=== PATIENT | male | born 1955 | race Caucasian/White ===

== ENCOUNTER 2017-09-15 14:25 | Emergency (ER) | payer OTHER ==
[~2017-09-15] VITALS: Ht 182.9 cm; Wt 100.0 kg
[~2017-09-15 14:25] MED LIST: CITA40 PO; LEVO.1 PO; THERM PO
[2017-09-15 14:27] VITALS: BP 142/79; PULSE 103; RESP 16; TEMP 97.7; O2SAT 98
[2017-09-15] MEDS ORDERED: KETOROLAC TROMETHAMINE 60 MG/2 ML (IM) VIAL IM ONE (14:45)
[2017-09-15 15:34] LABS: AUTOMATED NEUTROPHIL # 5.6 TH/MM3 (1.8-7.7); BASOPHIL % 0.4 % (0.0-2.0); EOSINOPHIL # 0.2 TH/MM3 (0-0.4); HEMATOCRIT 43.2 % (39.0-51.0); HEMO FLAGS DIFF FINAL; LYMPHOCYTE # 1.6 TH/MM3 (1.0-4.8); MEAN CELL VOLUME 89.5 FL (80.0-100.0); MEAN CORPUSCULAR HEMOGLOBIN 30.9 PG (27.0-34.0); MEAN CORPUSCULAR HGB CONC 34.5 % (32.0-36.0); MONO % 8.5 % (0.0-8.0); NEUT % 69.1 % (16.0-70.0); PLATELET COUNT 148 TH/MM3 (150-450); RED BLOOD COUNT 4.83 MIL/MM3 (4.50-5.90); RED CELL DISTRIBUTION WIDTH 13.5 % (11.6-17.2); WHITE BLOOD COUNT 8.1 TH/MM3 (4.0-11.0)
--- NOTE | 2017-09-15 15:37 | RADRPT ---
EXAM DATE/TIME: 09/15/2017 14:58 [place] COMPARISON: No previous studies available for comparison. INDICATIONS : Left knee pain post fall. MEDICAL HISTORY : None. SURGICAL HISTORY : None. ENCOUNTER: Initial ACUITY: 1 day PAIN SCORE: 8/10 LOCATION: Left lateral knee. FINDINGS: Four view examination of the left knee demonstrates no evidence of fracture or dislocation. There is moderate diffuse degenerative arthritis right knee joint. There is narrowing of the medial and latera l joint compartments. No significant joint effusion is seen. The patella grossly intact.. CONCLUSION: No acute fracture or joint dislocation. Moderate primary degenerative arthritis. Gerald Avelar MD on September 15, 2017 at 15:34 Board Certified Radiologist. This report was verified electronically.
--- NOTE | 2017-09-15 15:44 | PD ---
HPI Chief Complaint: Depression Time Seen by Provider: 14:39 Travel History International Travel<30 days: No Contact w/Intl Traveler<30days: No Traveled to known affect area: No History of Present Illness HPI 62-year-old male presents to emergency Department with points of depression and suicidal ideation as well as recent relapse and using crack cocaine. Patient also is complaining of left knee pain after fall 2 days ago. He denies fever, chills, or other symptoms. History of arthritis in the knee with arthroscopic surgery in the past. He states he last used crack cocaine yesterday. He is requesting psychiatric evaluation for his depression. He has no Specific plan. PFSH Past Medical History Anxiety: Yes Depression: Yes Heart Rhythm Problems: No Cancer: No Cardiac Catheterization: No Cardiovascular Problems: No High Cholesterol: No Congestive Heart Failure: No Diabetes: No Diminished Hearing: No Endocrine: Yes Genitourinary: No Hypertension: No Immune Disorder: No Implanted Vascular Access Dvce: Yes Musculoskeletal: Yes (right elbow) Neurologic: No Psychiatric: Yes Reproductive: No Respiratory: No Myocardial Infarction: No Thyroid Disease: Yes (hypothyrioidism) Tetanus Vaccination: < 5 Years Influenza Vaccination: Yes Past Surgical History Abdominal Surgery: No Body Medical Devices: metal plate in left-side of face Cardiac Surgery: No Coronary Artery Bypass Graft: No Ear Surgery: No Endocrine Surgery: No Genitourinary Surgery: No Oral Surgery: Yes Pacemaker: No Thoracic Surgery: No Tonsillectomy: Yes Other Surgery: Yes (plate in face, L KNEE ARTHROSCOPIC SX) Family History Family Myocardial Infarction: Yes Social History Alcohol Use: Yes ("very rarely") Tobacco Use: No Substance Use: Yes (crack cocaine) Allergies-Medications (Allergen,Severity, Reaction): Coded Allergies: No Known Allergies (Verified Adverse Reaction, Unknown, 09/15/17) Reported Meds & Prescriptions Reported Meds & Active Scripts Active No Active Prescriptions or Reported Medications Review of Systems Except as stated in HPI: all other systems reviewed are Neg General / Constitutional: No: Fever Eyes: No: Visual changes HENT: No: Headaches Cardiovascular: No: Chest Pain or Discomfort Respiratory: No: Shortness of Breath Gastrointestinal: No: Abdominal Pain Genitourinary: No: Dysuria Musculoskeletal: Positive: Arthralgias, No: Pain Skin: Positive Rash, Positive Itching, Positive Lesions Neurologic: No: Weakness Psychiatric: No: Depression Endocrine: No: Polydipsia Hematologic/Lymphatic: No: Easy Bruising Physical Exam Narrative GENERAL: Patient appears in no obvious distress. SKIN: Warm and dry. Patient appears to have an excoriated rash without signs of scabies. HEAD: Atraumatic. Normocephalic. EYES: Pupils equal and round. No scleral icterus. No injection or drainage. ENT: No nasal bleeding or discharge. Mucous membranes pink and moist. Pharynx is clear. Airway is patent. NECK: Trachea midline. Supple nontender. CARDIOVASCULAR: Regular rate and rhythm. RESPIRATORY: No accessory muscle use. Clear to auscultation. Breath sounds equal bilaterally. GASTROINTESTINAL: Abdomen soft, non-tender, nondistended. Hepatic and splenic margins not palpable. MUSCULOSKELETAL: Extremities without clubbing, cyanosis, or edema. No obvious deformities. Patient has arthritic changes to both knees without obvious effusion. No laxity is noted of the left knee. Patient complains of pain with palpation and varus and valgus stress. NEUROLOGICAL: Awake and alert. No obvious cranial nerve deficits. Motor grossly within normal limits. Five out of 5 muscle strength in the arms and legs. Normal speech. PSYCHIATRIC: Appropriate mood and affect; insight and judgment normal. Data Data Last Documented VS Vital Signs Date Time Temp Pulse Resp B/P (MAP) Pulse Ox O2 Delivery O2 Flow Rate FiO2 09/15/17 16:01 16 09/15/17 16:00 97.8 86 122/81 (95) 99 Room Air Orders Orders Complete Blood Count With Diff (09/15/17 14:40) Comprehensive Metabolic Panel (09/15/17 14:40) Psych Screen (09/15/17 14:40) Drug Screen, Random Urine (09/15/17 14:40) Alcohol (Ethanol) (09/15/17 14:40) Knee, Complete (4vws) (09/15/17 14:40) Ice/Cold Pack (09/15/17 14:40) Ketorolac Inj (Toradol Inj) (09/15/17 14:45) Diphenhydramine (Benadryl) (09/15/17 18:00) Labs Laboratory Tests Test 09/15/17 15:10 09/15/17 16:40 White Blood Count 8.1 TH/MM3 Red Blood Count 4.83 MIL/MM3 Hemoglobin 14.9 GM/DL Hematocrit 43.2 % Mean Corpuscular Volume 89.5 FL Mean Corpuscular Hemoglobin 30.9 PG Mean Corpuscular Hemoglobin Concent 34.5 % Red Cell Distribution Width 13.5 % Platelet Count 148 TH/MM3 Mean Platelet Volume 7.0 FL Neutrophils (%) (Auto) 69.1 % Lymphocytes (%) (Auto) 20.0 % Monocytes (%) (Auto) 8.5 % Eosinophils (%) (Auto) 2.0 % Basophils (%) (Auto) 0.4 % Neutrophils # (Auto) 5.6 TH/MM3 Lymphocytes # (Auto) 1.6 TH/MM3 Monocytes # (Auto) 0.7 TH/MM3 Eosinophils # (Auto) 0.2 TH/MM3 Basophils # (Auto) 0.0 TH/MM3 CBC Comment DIFF FINAL Differential Comment Blood Urea Nitrogen 15 MG/DL Creatinine 0.99 MG/DL Random Glucose 81 MG/DL Total Protein 7.5 GM/DL Albumin 3.8 GM/DL Calcium Level 8.7 MG/DL Alkaline Phosphatase 63 U/L Aspartate Amino Transf (AST/SGOT) 23 U/L Alanine Aminotransferase (ALT/SGPT) 22 U/L Total Bilirubin 0.9 MG/DL Sodium Level 137 MEQ/L Potassium Level 3.7 MEQ/L Chloride Level 102 MEQ/L Carbon Dioxide Level 26.1 MEQ/L Anion Gap 9 MEQ/L Estimat Glomerular Filtration Rate 77 ML/MIN Ethyl Alcohol Level LESS THAN 3 MG/DL Urine Opiates Screen NEG Urine Barbiturates Screen NEG Urine Amphetamines Screen NEG Urine Benzodiazepines Screen NEG Urine Cocaine Screen POS Urine Cannabinoids Screen NEG MDM Medical Decision Making Medical Screen Exam Complete: Yes Emergency Medical Condition: Yes Medical Record Reviewed: Yes Differential Diagnosis Left knee strain. Left knee fracture. Depression. Suicidal ideation. Cocaine abuse. Narrative Course X-ray of the left knee is ordered. Psychiatric labs ordered including serum alcohol per protocol. Patient is given Toradol 60 mg IM. X-ray left knee shows osteoarthritis otherwise no acute findings. Patient is medically stable for psychiatric evaluation. Psych screen is ordered. Diagnosis Primary Impression: Medical clearance for psychiatric admission Additional Impressions: Strain of left knee Qualified Codes: S86.912A - Strain of unspecified muscle(s) and tendon(s) at lower leg level, left leg, initial encounter Cocaine abuse Suicidal ideation Scripts No Active Prescriptions or Reported Meds Condition: Stable Stephan Reyes. PA Sep 15, 2017 15:44
[2017-09-15 15:54] LABS: ALT (GPT) 22 U/L (12-78); ANION GAP 9 MEQ/L (5-15); AST (GOT) 23 U/L (15-37); BICARBONATE 26.1 MEQ/L (21.0-32.0); BLOOD UREA NITROGEN 15 MG/DL (7-18); CHLORIDE 102 MEQ/L (98-107); GLOMERULAR FILTRATION RATE 77 ML/MIN (>89); POTASSIUM 3.7 MEQ/L (3.5-5.1); SODIUM (NA) 137 MEQ/L (136-145)
[2017-09-15 15:56] LABS: ALKALINE PHOSPHATASE 63 U/L (45-117); TOTAL BILIRUBIN ADULT 0.9 MG/DL (0.2-1.0)
[2017-09-15 15:57] LABS: ALCOHOL LESS THAN 3 MG/DL (0-5)
[2017-09-15 16:00] VITALS: BP 122/81; PULSE 86; RESP 16; TEMP 97.8; O2SAT 99
[2017-09-15] MEDS ORDERED: diphenhydrAMINE HCL 50 MG CAP PO ONE (18:00)
[2017-09-15 18:13] VITALS: BP 133/84; TEMP 97.8
[2017-09-16 01:59] VITALS: BP 107/55; PULSE 62; RESP 17; O2SAT 94
[2017-09-16 05:57] VITALS: BP 101/68; PULSE 60; RESP 18; O2SAT 97
[2017-09-16 12:12] VITALS: BP 114/67; PULSE 72; RESP 18; O2SAT 98
[2017-09-16] MEDS ORDERED: IBUPROFEN 600 MG TAB PO ONE (13:00)
--- NOTE | 2017-09-16 13:01 | PD ---
History of Present Illness Chief Complaint: Depression Time Seen by Provider: 12:45 Travel History International Travel<30 Days: No Contact w/Intl Traveler<30days: No Known affected area: No Legal Status Legal Status: Voluntary History of Present Illness: 62-year-old male brought in under a Ellison act for suicidal ideation. Patient has spent his monthly disability check over the last few days, smoking crack cocaine. He presents now with no suicidal or homicidal ideation, plan or intent. He would like to go home even though he has been offered transportation to [facility] for treatment of his drug abuse problem. He is hoping that his mother, with whom he still lives, will accept him back into the house. He has no psychotic symptoms and no cognitive deficits. PFSH Past Medical History Anxiety: Yes Depression: Yes Heart Rhythm Problems: No Cancer: No Cardiac Catheterization: No Cardiovascular Problems: No High Cholesterol: No Congestive Heart Failure: No Diabetes: No Diminished Hearing: No Endocrine: Yes Genitourinary: No Hypertension: No Immune Disorder: No Implanted Vascular Access Dvce: Yes Musculoskeletal: Yes (right elbow) Neurologic: No Psychiatric: Yes Reproductive: No Respiratory: No Myocardial Infarction: No Thyroid Disease: Yes (hypothyrioidism) Tetanus Vaccination: < 5 Years Influenza Vaccination: Yes Past Surgical History Abdominal Surgery: No Body Medical Devices: metal plate in left-side of face Cardiac Surgery: No Coronary Artery Bypass Graft: No Ear Surgery: No Endocrine Surgery: No Genitourinary Surgery: No Oral Surgery: Yes Pacemaker: No Thoracic Surgery: No Tonsillectomy: Yes Other Surgery: Yes (plate in face, L KNEE ARTHROSCOPIC SX) Psychiatric History Psychiatric History Hx Psychiatric Treatment: HX DEPRESSION, ALCOHOL, PSA. History of Inpatient Treatment: Yes Guns or firearms in home: No Social History Hx Alcohol Use: Yes ("very rarely") Hx Tobacco Use: No Hx Substance Use: Yes (crack cocaine) Substance Use Type: Alcohol, Crack Other Substances Used: HAS BEEN USING CRACK FOR 3 DAYS Hx of Substance Use Treatment: Yes Allergies-Medications (Allergen,Severity, Reaction): Coded Allergies: No Known Allergies (Verified Adverse Reaction, Unknown, 09/15/17) Reported Meds & Prescriptions Reported Meds & Active Scripts Active No Active Prescriptions or Reported Medications Review of Systems Musculoskeletal: COMPLAINS OF: Joint pain Except as stated in HPI: all other systems reviewed are Neg Mental Status Examination Appearance: Disheveled Consciousness: Alert Orientation: x4 Motor Activity: Normal gait Speech: Unremarkable Language: Adequate Fund of Knowledge: Adequate Attention and Concentration: Adequate Memory: Unremarkable Mood: Appropriate Affect: Appropriate Thought Process & Associations: Intact Thought Content: Appropriate Hallucination Type: None Delusion Type: None Suicidal Ideation: No Suicidal Plan: No Suicidal Intention: No Homicidal Ideation: No Homicidal Plan: No Homicidal Intention: No Insight: Adequate Judgment: Adequate MDM Medical Decision Making Medical Record Reviewed: Yes Assessment/Plan Patient obviously has a primary diagnosis of cocaine abuse. He does not meet criteria for Ellison act and he does not meet criteria for involuntary psychiatric hospitalization. In fact, it would be counter therapeutic to admit the patient after he spent all his money on crack cocaine and his mother does not want him to stay at home. He has been to [facility] previously and may return there if he is wanting treatment for drug abuse. Case discussed with nurse Rasmussen and medical record reviewed. Orders Orders Complete Blood Count With Diff (09/15/17 14:40) Comprehensive Metabolic Panel (09/15/17 14:40) Psych Screen (09/15/17 14:40) Drug Screen, Random Urine (09/15/17 14:40) Alcohol (Ethanol) (09/15/17 14:40) Knee, Complete (4vws) (09/15/17 14:40) Ice/Cold Pack (09/15/17 14:40) Ketorolac Inj (Toradol Inj) (09/15/17 14:45) Diphenhydramine (Benadryl) (09/15/17 18:00) Diet Regular Basic (09/16/17 Breakfast) Diet Regular Basic (09/16/17 Lunch) Ibuprofen (Motrin) (09/16/17 13:00) Results Vital Signs Date Time Temp Pulse Resp B/P (MAP) Pulse Ox O2 Delivery O2 Flow Rate FiO2 09/16/17 12:12 72 18 114/67 (83) 98 Room Air 09/16/17 05:57 60 18 101/68 (79) 97 Room Air 09/16/17 01:59 62 17 107/55 (72) 94 Room Air 09/15/17 18:13 97.8 86 17 133/84 (100) 99 09/15/17 16:01 16 09/15/17 16:00 97.8 86 16 122/81 (95) 99 Room Air 09/15/17 15:00 96 16 09/15/17 14:27 97.7 103 16 142/79 (100) 98 Laboratory Tests Test 09/15/17 15:10 09/15/17 16:40 White Blood Count 8.1 Red Blood Count 4.83 Hemoglobin 14.9 Hematocrit 43.2 Mean Corpuscular Volume 89.5 Mean Corpuscular Hemoglobin 30.9 Mean Corpuscular Hemoglobin Concent 34.5 Red Cell Distribution Width 13.5 Platelet Count 148 Mean Platelet Volume 7.0 Neutrophils (%) (Auto) 69.1 Lymphocytes (%) (Auto) 20.0 Monocytes (%) (Auto) 8.5 Eosinophils (%) (Auto) 2.0 Basophils (%) (Auto) 0.4 Neutrophils # (Auto) 5.6 Lymphocytes # (Auto) 1.6 Monocytes # (Auto) 0.7 Eosinophils # (Auto) 0.2 Basophils # (Auto) 0.0 CBC Comment DIFF FINAL Differential Comment Blood Urea Nitrogen 15 Creatinine 0.99 Random Glucose 81 Total Protein 7.5 Albumin 3.8 Calcium Level 8.7 Alkaline Phosphatase 63 Aspartate Amino Transf (AST/SGOT) 23 Alanine Aminotransferase (ALT/SGPT) 22 Total Bilirubin 0.9 Sodium Level 137 Potassium Level 3.7 Chloride Level 102 Carbon Dioxide Level 26.1 Anion Gap 9 Estimat Glomerular Filtration Rate 77 Ethyl Alcohol Level LESS THAN 3 Urine Opiates Screen NEG Urine Barbiturates Screen NEG Urine Amphetamines Screen NEG Urine Benzodiazepines Screen NEG Urine Cocaine Screen POS Urine Cannabinoids Screen NEG Diagnosis Primary Impression: Cocaine abuse Prescriptions No Active Prescriptions or Reported Meds Condition: Stable Ananda Pérez MD Sep 16, 2017 13:01
--- NOTE | 2017-09-16 13:22 | PD ---
Physical Exam Date Seen by Provider: Sep 16, 2017 Narrative 62-year-old male presents to emergency department complaining of suicidal ideations. At this time patient denies suicidal ideations and wants to follow up with outpatient [facility]. Upon discharge patient complaining of left knee pain. According to notes, fracture was ruled out. Advised follow-up with primary care physician and orthopedics. Aleks wrap applied. Data Data Last Documented VS Vital Signs Date Time Temp Pulse Resp B/P (MAP) Pulse Ox O2 Delivery O2 Flow Rate FiO2 09/16/17 19:52 09/16/17 18:27 87 18 98 Room Air 09/15/17 18:13 97.8 Orders Orders Complete Blood Count With Diff (09/15/17 14:40) Comprehensive Metabolic Panel (09/15/17 14:40) Psych Screen (09/15/17 14:40) Drug Screen, Random Urine (09/15/17 14:40) Alcohol (Ethanol) (09/15/17 14:40) Knee, Complete (4vws) (09/15/17 14:40) Ice/Cold Pack (09/15/17 14:40) Ketorolac Inj (Toradol Inj) (09/15/17 14:45) Diphenhydramine (Benadryl) (09/15/17 18:00) Diet Regular Basic (09/16/17 Breakfast) Diet Regular Basic (09/16/17 Lunch) Ibuprofen (Motrin) (09/16/17 13:00) Splint Or Brace Apply/Monitor (09/16/17 13:20) Ed Discharge Order (09/16/17 14:00) Diet Regular Basic (09/16/17 Dinner) Labs Laboratory Tests Test 09/15/17 15:10 09/15/17 16:40 White Blood Count 8.1 TH/MM3 Red Blood Count 4.83 MIL/MM3 Hemoglobin 14.9 GM/DL Hematocrit 43.2 % Mean Corpuscular Volume 89.5 FL Mean Corpuscular Hemoglobin 30.9 PG Mean Corpuscular Hemoglobin Concent 34.5 % Red Cell Distribution Width 13.5 % Platelet Count 148 TH/MM3 Mean Platelet Volume 7.0 FL Neutrophils (%) (Auto) 69.1 % Lymphocytes (%) (Auto) 20.0 % Monocytes (%) (Auto) 8.5 % Eosinophils (%) (Auto) 2.0 % Basophils (%) (Auto) 0.4 % Neutrophils # (Auto) 5.6 TH/MM3 Lymphocytes # (Auto) 1.6 TH/MM3 Monocytes # (Auto) 0.7 TH/MM3 Eosinophils # (Auto) 0.2 TH/MM3 Basophils # (Auto) 0.0 TH/MM3 CBC Comment DIFF FINAL Differential Comment Blood Urea Nitrogen 15 MG/DL Creatinine 0.99 MG/DL Random Glucose 81 MG/DL Total Protein 7.5 GM/DL Albumin 3.8 GM/DL Calcium Level 8.7 MG/DL Alkaline Phosphatase 63 U/L Aspartate Amino Transf (AST/SGOT) 23 U/L Alanine Aminotransferase (ALT/SGPT) 22 U/L Total Bilirubin 0.9 MG/DL Sodium Level 137 MEQ/L Potassium Level 3.7 MEQ/L Chloride Level 102 MEQ/L Carbon Dioxide Level 26.1 MEQ/L Anion Gap 9 MEQ/L Estimat Glomerular Filtration Rate 77 ML/MIN Ethyl Alcohol Level LESS THAN 3 MG/DL Urine Opiates Screen NEG Urine Barbiturates Screen NEG Urine Amphetamines Screen NEG Urine Benzodiazepines Screen NEG Urine Cocaine Screen POS Urine Cannabinoids Screen NEG MDM Supervised Visit with AIME: Yes Diagnosis Primary Impression: Cocaine abuse Scripts No Active Prescriptions or Reported Meds Condition: Stable Megha Caban Sep 16, 2017 13:22
[2017-09-16 18:27] VITALS: BP 121/76; PULSE 87; RESP 18; O2SAT 98
== END 2017-09-16 21:03 | disposition home or self-care (01) ==
LOC: NEPD 14:25 → NEPJ 09-16 21:03
DX: F14.10 Cocaine abuse, uncomplicated (principal); R45.851 Suicidal ideations; M25.562 Pain in left knee; F41.9 Anxiety disorder, unspecified; F32.9 Major depressive disorder, single episode, unspecified; E03.9 Hypothyroidism, unspecified
CPT/HCPCS: 73564; 80053; 80307; 85025; 96372; 99284; J1885; Q0163